=== PATIENT | female | born 1975 | race Two or more races ===

== ENCOUNTER 2024-07-07 06:15 | Day surgery (SDC) | payer OTHER ==
[2024-07-06 10:45] VITALS: BP 112/77
[~2024-07-07] VITALS: Ht 165.1 cm; Wt 59.9 kg
[~2024-07-07 06:15] MED LIST: NP THYROID60 MG PO
[2024-07-07] MEDS ORDERED: MORPHINE SULFATE 4 MG/ML VIAL IV ONE (13:35)
[2024-07-07] MEDS ORDERED: CLINDAMYCIN PHOSPHATE 150 MG/ML (900mg) IV ONE (13:45)
[2024-07-07] MEDS ORDERED: CEFAZOLIN SODIUM 1,000 MG VIAL IV ONE (13:45)
[2024-07-07] MEDS ORDERED: GENTAMICIN SULFATE 40 MG/ML VIAL IR ONE (13:45)
[2024-07-07] MEDS ORDERED: POVIDONE-IODINE 118 ML BOTT TOP ONE (13:45)
[2024-07-07] MEDS ORDERED: POVIDONE-IODINE SCRUB 118 ML BOTT TOP ONE (13:45)
[2024-07-07] MEDS ORDERED: CEFAZOLIN SODIUM 1,000 MG VIAL IJ ONE (13:45)
[2024-07-07] MEDS ORDERED: CHLORHEXIDINE GLUCONATE 120 ML BOTTLE TOP ONE (13:45)
== END 2024-07-07 15:15 | disposition home or self-care (01) ==
LOC: CIR.AMB 06:15
PROVIDERS: ATTEND Surgery
DX: C50.112 Malignant neoplasm of central portion of left female breast (principal); D48.61 Neoplasm of uncertain behavior of right breast; R59.0 Localized enlarged lymph nodes; N65.1 Disproportion of reconstructed breast; S21.001A Unspecified open wound of right breast, initial encounter; S21.002A Unspecified open wound of left breast, initial encounter

== ENCOUNTER 2024-09-22 06:15 | Day surgery (SDC) | payer OTHER ==
[2024-09-20 09:43] LABS: URINE APPEARANCE Clear; URINE BILIRRUBIN Negative (NEGATIVE); URINE BLOOD Negative; URINE COLOR Yellow; URINE GLUCOSE Negative (NEGATIVE); URINE KETONE Negative (NEGATIVE); URINE LEUKOCYTE Negative; URINE NITRATE Negative; URINE PROTEIN Negative (NEGATIVE); URINE UROBILINOGEN 0.2 E.U./dl
[2024-09-20 09:47] LABS: URINE BACTERIA 2369.3 uL (0.0-1933); URINE EPITHELIAL CELLS 21.6 uL (0.0-38.8); URINE RBC 12.3 uL (0.0-20.8); URINE WBC 32.7 uL (0.0-23.2)
[2024-09-20 09:48] LABS: HEMATOCRIT 38.1 % (36.0-45.00); HEMOGLOBIN 13.3 g/dL (12.0-15.00); MEAN CORPUSCULAR HEMOGLOBIN 30.3 pg (27.00-32.0); MEAN CORPUSCULAR HGB CONC 34.8 g/dl (32.0-36.0); PLATELET COUNT 189 K/uL (150-450); RED BLOOD COUNT 4.38 M/uL (4.00-6.00); RED CELL DISTRIBUTION WIDTH 14.5 % (11.5-14.5)
[2024-09-20 09:49] LABS: URINE CAST 0.14 uL (0.0-1.40)
[2024-09-20 10:07] LABS: INR 1.04; PARTIAL THROMBOPLASTIN TIME 25.4 SECONDS (22.0-34.0); PROTHROMBIN TIME 11.3 SECONDS (9.0-11.5)
[2024-09-20 10:16] VITALS: BP 112/72
[2024-09-20 10:36] LABS: CALCIUM 9.4 mg/dL (8.5-10.1); CREATININE SERUM 0.78 mg/dL (0.55-1.02); GFR 77.86; POTASSIUM 4.02 mEq/L (3.5-5.1)
[~2024-09-22] VITALS: Ht 165.1 cm; Wt 59.9 kg
[~2024-09-22 06:15] MED LIST changes: +LEXAPRO20 MG PO
[2024-09-22] MEDS ORDERED: CLINDAMYCIN PHOSPHATE 150 MG/ML (900mg) ONE (09:21)
[2024-09-22] MEDS ORDERED: ONDANSETRON HCL 2 MG/ML VIAL IV PRN (10:15)
[2024-09-22] MEDS ORDERED: MORPHINE SULFATE 4 MG/ML VIAL IV PRN (10:15)
[2024-09-22] MEDS ORDERED: CEFAZOLIN SODIUM 1,000 MG VIAL IM ONE (11:15)
[2024-09-22] MEDS ORDERED: POVIDONE-IODINE SCRUB 118 ML BOTT TOP ONE (11:15)
[2024-09-22] MEDS ORDERED: GENTAMICIN SULFATE 40 MG/ML VIAL IR ONE (11:15)
[2024-09-22] MEDS ORDERED: POVIDONE-IODINE 118 ML BOTT TOP ONE ×2 (11:15)
[2024-09-22] MEDS ORDERED: MORPHINE SULFATE 4 MG/ML VIAL IV ONE ×3 (13:10→13:40)
== END 2024-09-22 15:00 | disposition home or self-care (01) ==
LOC: CIR.AMB 06:15
PROVIDERS: ATTEND Plastic Surgery
DX: C50.112 Malignant neoplasm of central portion of left female breast (principal); D48.61 Neoplasm of uncertain behavior of right breast; Z90.13 Acquired absence of bilateral breasts and nipples; Z88.6 Allergy status to analgesic agent; Z80.3 Family history of malignant neoplasm of breast